=== PATIENT | male | born 1990 | race Caucasian/White ===

== ENCOUNTER 2018-12-19 14:33 | Emergency (ER) | payer SELFPAY ==
[2018-12-19 14:54] VITALS: BP 115/77; PULSE 74; RESP 18; TEMP 98.7; O2SAT 100
--- NOTE | 2018-12-19 16:17 | C.PDOC ---
History Of Present Illness 28 year old male presents to the ED for evaluation of left-sided back pain which began last night. Patient admits to engaging in heavy lifting at work. He did not take any medicine for pain because he was unsure of what to take. Patient denies urinary/bowel incontinence, saddles anesthesia, extremity numbness/weakness, tingling sensations, or recent trauma/injuries or falls. Time Seen by Provider: 12/19/18 15:18 Chief Complaint (Nursing): Back Pain History Per: Patient History/Exam Limitations: no limitations Onset/Duration Of Symptoms: Hrs Current Symptoms Are (Timing): Still Present Quality Of Discomfort: "Pain" Previous Symptoms: Back Pain (left-sided ) Associated Symptoms: denies: Incontinence, New Weakness, New Numbness Additional History Per: Patient Past Medical History Reviewed: Historical Data, Nursing Documentation, Vital Signs Vital Signs: Last Vital Signs Temp 98.7 F 12/19/18 14:49 Pulse 74 12/19/18 14:49 Resp 18 12/19/18 14:49 BP 115/77 12/19/18 14:49 Pulse Ox 100 12/19/18 14:49 - Medical History PMH: No Chronic Diseases Surgical History: No Surg Hx Family History: States: Unknown Family Hx - Social History Hx Alcohol Use: Yes Hx Substance Use: No - Immunization History Hx Tetanus Toxoid Vaccination: No Hx Influenza Vaccination: No Hx Pneumococcal Vaccination: No Review Of Systems Genitourinary: Negative for: Incontinence Musculoskeletal: Positive for: Back Pain (left-sided, atraumatic ) Skin: Negative for: Rash, Lesions, Jaundice, Bruising Neurological: Negative for: Weakness, Numbness Physical Exam - Physical Exam Appears: Non-toxic, No Acute Distress Skin: Normal Color, Warm, Dry, No Ecchymosis Neck: Supple Chest: Symmetrical, No Deformity Back: No Vertebral Tenderness, Other (mild, left thoracic tenderness, diffuse lumbar tenderness ) Extremity: Normal ROM, Capillary Refill (less than 2 seconds ) Neurological/Psych: Normal Speech, Normal Cognition, Normal Sensation Gait: Steady ED Course And Treatment O2 Sat by Pulse Oximetry: 100 (on RA ) Pulse Ox Interpretation: Normal Medical Decision Making Medical Decision Making: Impression: 28 year old male with left-sided lower back pain Plan: * Motrin PO * reassess and disposition Progress: Motrin PO given. Disposition - Disposition Disposition: HOME/ ROUTINE Disposition Time: 16:16 Condition: GOOD Additional Instructions: Please lift carefully- need to bend knees when lifting heavy things. Take ibuprofen 600 mg (three over the counter tablets from any drugstore of 200 mg each) by mouth every 6 hours if needed for pain. Take with food. Follow up with medical clinic in the next week. Instructions: Muscle Strain (DC) Forms: General Discharge Instructions, [facility] (Y[place]i), Work Excuse - Clinical Impression Clinical Impression: Low back strain - PA / COMMUNICATIONS ASSOCIATE / Resident Statement MD/DO has reviewed & agrees with the documentation as recorded. - Scribe Statement The provider has reviewed the documentation as recorded by the Scribe (Aurelia Ruiz) All medical record entries made by the Scribe were at my direction and personally dictated by me. I have reviewed the chart and agree that the record accurately reflects my personal performance of the history, physical exam, medical decision making, and the department course for this patient. I have also personally directed, reviewed, and agree with the discharge instructions and disposition.
--- NOTE | 2018-12-19 16:18 | C.PDOC ---
Time Seen by Provider: 12/19/18 15:18 Chief Complaint (Nursing): Back Pain Past Medical History Vital Signs: Last Vital Signs Temp 98.7 F 12/19/18 14:49 Pulse 74 12/19/18 14:49 Resp 18 12/19/18 14:49 BP 115/77 12/19/18 14:49 Pulse Ox 100 12/19/18 14:49 - Social History Hx Alcohol Use: Yes Hx Substance Use: No - Immunization History Hx Tetanus Toxoid Vaccination: No Hx Influenza Vaccination: No Hx Pneumococcal Vaccination: No ED Course And Treatment O2 Sat by Pulse Oximetry: 100 Disposition Counseled Patient/Family Regarding: Diagnosis, Need For Followup - Disposition Disposition: HOME/ ROUTINE Disposition Time: 16:16 Condition: GOOD Additional Instructions: Please lift carefully- need to bend knees when lifting heavy things. Take ibuprofen 600 mg (three over the counter tablets from any drugstore of 200 mg each) by mouth every 6 hours if needed for pain. Take with food. Follow up with medical clinic in the next week. Instructions: Muscle Strain (DC) Forms: [facility] (German), General Discharge Instructions - Clinical Impression Clinical Impression: Low back strain
== END 2018-12-19 16:33 | disposition home or self-care (01) ==
LOC: C.ER 14:33
DX: S39.012A Strain of muscle, fascia and tendon of lower back, initial encounter (principal); X50.0XXA Overexertion from strenuous movement or load, initial encounter; Y92.89 Other specified places as the place of occurrence of the external cause; Y99.0 Civilian activity done for income or pay